=== PATIENT | male | born 1960 | race Caucasian/White ===

== ENCOUNTER 2016-09-02 08:39 | Inpatient (IN) | payer OTHER ==
[2016-09-02] MEDS ORDERED: SODIUM CHLORIDE 0.9% 500 ML IV STA (08:59)
--- NOTE | 2016-09-02 09:07 | ED ---
General Adult HPI - General Chief complaint: Neuro Symptoms/Deficit Stated complaint: Sent by Urgent Care Poss CVA Time Seen by Provider: 09/02/16 08:45 Source: patient, family, RN notes reviewed Mode of arrival: wheelchair Limitations: no limitations - History of Present Illness Initial comments: This is a 56-year-old male who presents emergency Department complaining of left -sided weakness since Friday. Patient states he's had difficult time controlling his left arm and is noticed a little bit of weakness in his left leg. Patient states she's also had some intermittent slurred speech but currently is not having any slurred speech. 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 Patient denies any residual effects from that. 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 Patient denies any chest pain difficulty breathing or shortness of breath per patient denies any fever chills or cough. Patient denies abdominal pain patient denies any nausea or vomiting. Patient denies any recent fever or chills. - Related Data Home Medications Medication Instructions Recorded Confirmed Aspirin 650 mg PO DAILY 09/02/16 09/02/16 Krill Oil 500 mg PO DAILY 09/02/16 09/02/16 Multivitamins, Thera [Multivitamin] 1 tab PO DAILY 09/02/16 09/02/16 Allergies Allergy/AdvReac Type Severity Reaction Status Date / Time cephalexin monohydrate Allergy Severe Rash/Hives Verified 09/02/16 09:24 [From Keflex] Sulfa (Sulfonamide Allergy Severe Rash/Hives Verified 09/02/16 09:24 Antibiotics) Review of Systems ROS Statement: Those systems with pertinent positive or pertinent negative responses have been documented in the HPI. ROS Other: All systems not noted in ROS Statement are negative. 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 Patient is nontoxic and well- hydrated and is in mild distress. ENT: Neck is soft and supple. No significant lymphadenopathy is noted. Oropharynx is clear. Moist mucous membranes. Neck has full range of motion without eliciting any pain. EYES: The sclera were anicteric and conjunctiva were pink and moist. Extraocular movements were intact and pupils were equal round and reactive to light. Eyelids were unremarkable. PULMONARY: Unlabored respirations. Good breath sounds bilaterally. No audible rales rhonchi or wheezing was noted. CARDIOVASCULAR: There is a regular rate and rhythm without any murmurs gallops or rubs. ABDOMEN: Soft and nontender with normal bowel sounds. No palpable organomegaly was noted. There is no palpable pulsatile mass. SKIN: Skin is clear with no lesions or rashes and otherwise unremarkable. NEUROLOGIC: Patient is alert and oriented x3. Cranial nerves II through XII are grossly intact however he does not have lateral movement of the right eye beyond midline and he states that is normal from a surgery he had on his eyes. Patient has weakness of acquisition manager on the right side. Patient cerebellar testing is abnormal in the right hand and the right leg. MUSCULOSKELETAL: Normal extremities with adequate strength and full range of motion. LYMPHATICS: No significant lymphadenopathy is noted PSYCHIATRIC: Normal psychiatric evaluation. Normal interpersonal interactions appears functionally intact in deals appropriately with others. No signs of depression. No signs of anxiety. Limitations: no limitations Course Vital Signs 09/02/16 09/02/16 09/02/16 08:43 09:01 09:15 Temperature 98.3 F 98.2 F 98.3 F Pulse Rate 65 56 L 54 L Respiratory 16 14 14 Rate Blood Pressure 133/78 137/78 140/80 O2 Sat by Pulse 97 100 98 Oximetry 09/02/16 09:55 Temperature 98.0 F Pulse Rate 59 L Respiratory 14 Rate Blood Pressure 119/76 O2 Sat by Pulse 95 Oximetry Medical Decision Making - Medical Decision Making EKG shows sinus bradycardia 55 bpm FL interval 284 Aldo is 100 a QT interval 442 QTC is 422. Patient's EKG shows no ST segment elevation or depression or T- wave abdomen is noted. Chest x-ray shows no acute abnormality. CT of the brain shows no acute abnormality but does show some old surgical changes. - Lab Data Result diagrams: 09/02/16 09:00 09/02/16 09:00 Lab Results 09/02/16 09/02/16 09/02/16 Range/Units 09:00 09:00 09:00 WBC 8.3 (3.8-10.6) k/uL RBC 5.53 (4.30-5.90) m/uL Hgb 16.1 (13.0-17.5) gm/dL Hct 48.0 (39.0-53.0) % MCV 86.9 (80.0-100.0) fL MCH 29.1 (25.0-35.0) pg MCHC 33.5 (31.0-37.0) g/dL RDW 13.2 (11.5-15.5) % Plt Count 222 (150-450) k/uL Neutrophils % 50 % Lymphocytes % 40 % Monocytes % 4 % Eosinophils % 3 % Basophils % 1 % Neutrophils # 4.1 (1.3-7.7) k/uL Lymphocytes # 3.3 (1.0-4.8) k/uL Monocytes # 0.4 (0-1.0) k/uL Eosinophils # 0.3 (0-0.7) k/uL Basophils # 0.1 (0-0.2) k/uL PT (9.0-12.0) sec INR (<1.1) APTT (22.0-30.0) sec Sodium 141 (137-145) mmol/L Potassium 4.2 (3.5-5.1) mmol/L Chloride 100 (98-107) mmol/L Carbon Dioxide 27 (22-30) mmol/L Anion Gap 14 mmol/L BUN 16 (9-20) mg/dL Creatinine 0.87 (0.66-1.25) mg/dL Est GFR (MDRD) Af Amer >60 (>60 ml/min/1.73 sqM) Est GFR (MDRD) Non-Af >60 (>60 ml/min/1.73 sqM) Glucose 199 H (74-99) mg/dL POC Glucose (mg/dL) (75-99) mg/dL POC Glu Food Runner ID Calcium 9.5 (8.4-10.2) mg/dL Total Bilirubin 0.8 (0.2-1.3) mg/dL AST 55 (17-59) U/L ALT 44 (21-72) U/L Alkaline Phosphatase 84 (38-126) U/L Total Creatine Kinase 83 (55-170) U/L CK-MB (CK-2) 0.5 (0.0-2.4) ng/mL CK-MB (CK-2) Rel Index 0.6 Troponin I <0.012 (0.000-0.034) ng/mL Total Protein 8.0 (6.3-8.2) g/dL Albumin 4.1 (3.5-5.0) g/dL 09/02/16 09/02/16 Range/Units 09:00 09:59 WBC (3.8-10.6) k/uL RBC (4.30-5.90) m/uL Hgb (13.0-17.5) gm/dL Hct (39.0-53.0) % MCV (80.0-100.0) fL MCH (25.0-35.0) pg MCHC (31.0-37.0) g/dL RDW (11.5-15.5) % Plt Count (150-450) k/uL Neutrophils % % Lymphocytes % % Monocytes % % Eosinophils % % Basophils % % Neutrophils # (1.3-7.7) k/uL Lymphocytes # (1.0-4.8) k/uL Monocytes # (0-1.0) k/uL Eosinophils # (0-0.7) k/uL Basophils # (0-0.2) k/uL PT 11.7 (9.0-12.0) sec INR 1.2 (<1.1) APTT 23.5 (22.0-30.0) sec Sodium (137-145) mmol/L Potassium (3.5-5.1) mmol/L Chloride (98-107) mmol/L Carbon Dioxide (22-30) mmol/L Anion Gap mmol/L BUN (9-20) mg/dL Creatinine (0.66-1.25) mg/dL Est GFR (MDRD) Af Amer (>60 ml/min/1.73 sqM) Est GFR (MDRD) Non-Af (>60 ml/min/1.73 sqM) Glucose (74-99) mg/dL POC Glucose (mg/dL) 165 H (75-99) mg/dL POC Glu Food Runner ID Branch, Simon Calcium (8.4-10.2) mg/dL Total Bilirubin (0.2-1.3) mg/dL AST (17-59) U/L ALT (21-72) U/L Alkaline Phosphatase (38-126) U/L Total Creatine Kinase (55-170) U/L CK-MB (CK-2) (0.0-2.4) ng/mL CK-MB (CK-2) Rel Index Troponin I (0.000-0.034) ng/mL Total Protein (6.3-8.2) g/dL Albumin (3.5-5.0) g/dL Disposition Clinical Impression: Cerebrovascular accident Disposition: ADMITTED IP TO THIS [facility] Time of Disposition: 10:13
[2016-09-02 09:15] LABS: Basophils # (A) 0.1 k/uL (0-0.2); Basophils % (A) 1 %; CH 29.5; CHCM 34.1; Eosinophils # (A) 0.3 k/uL (0-0.7); Eosinophils % (A) 3 %; HDW 2.68; HGB 16.1 gm/dL (13.0-17.5); Luc # (Auto) 0.16; Luc % (Auto) 2; Lymphocytes # (A) 3.3 k/uL (1.0-4.8); Lymphocytes % (A) 40 %; MCH 29.1 pg (25.0-35.0); MCHC 33.5 g/dL (31.0-37.0); MCV 86.9 fL (80.0-100.0); Mean Platelet Volume 7.5; Monocytes # (A) 0.4 k/uL (0-1.0); Monocytes % (A) 4 %; Neutrophils # (A) 4.1 k/uL (1.3-7.7); Neutrophils % (A) 50 %; RBC 5.53 m/uL (4.30-5.90); RDW 13.2 % (11.5-15.5); WBC 8.3 k/uL (3.8-10.6); WBC (Perox) 8.31
[2016-09-02 09:25] LABS: ALT 44 U/L (21-72); AST 55 U/L (17-59); Alkaline Phosphatase 84 U/L (38-126); Anion Gap 14 mmol/L; Blood Urea Nitrogen 16 mg/dL (9-20); Calcium 9.5 mg/dL (8.4-10.2); Carbon Dioxide 27 mmol/L (22-30); Chloride 100 mmol/L (98-107); Glucose 199 mg/dL (74-99); Non-African American GFR(MDRD) >60 (>60 ml/min/1.73 sqM); Potassium 4.2 mmol/L (3.5-5.1); Sodium 141 mmol/L (137-145); Total Bilirubin 0.8 mg/dL (0.2-1.3)
--- NOTE | 2016-09-02 09:29 | CT ---
EXAMINATION TYPE: CT brain wo con for TPA DATE OF EXAM: 09/02/2016 9:16 AM COMPARISON: NONE HISTORY: Patient complains of left side weakness. CT DLP: 1046 mGycm Automated exposure control for dose reduction was used. FINDINGS: Surgical changes from bilateral frontal craniotomy are identified. There is no acute intrac ranial hemorrhage or midline shift identified. The ventricles and sulci are within normal limits in size. There is encephalomalacia involving the inferior frontal lobes bilaterally. Nonspecific calcifi cations in the triston are noted. Dystrophic calcification from remote trauma versus calcified mass/neop lasm is in differential. The globes are intact and the visualized sinuses are clear. IMPRESSION: No acute intracranial hemorrhage or midline shift is seen. Post traumatic and/or surgical changes ove r frontal lobes with encephalomalacia. Nonspecific calcification at level of triston, calcific mass or n eoplasm is in differential, need to further investigate with contrast-enhanced MRI should be based on clinical correlation and more importantly correlation with old outside CT or MRI studies.
--- NOTE | 2016-09-02 09:42 | XR ---
EXAMINATION TYPE: XR chest 2V DATE OF EXAM: 09/02/2016 9:33 AM COMPARISON: NONE HISTORY: Shortness of breath TECHNIQUE: Frontal and lateral views of the chest are obtained. FINDINGS: Scattered senescent parenchymal changes noted. Hyperinflation compatible with COPD. No evidence for infiltrate. No evidence for atelectasis. Heart size is stable. Mediastinal structures are stable and grossly unremarkable. No evidence for hilar prominence. Degenerative changes dorsal spine. IMPRESSION: 1. No evidence for acute pulmonary disease.
[2016-09-02 09:43] LABS: INR 1.2 (<1.1); Partial Thromboplastin Time 23.5 sec (22.0-30.0); Prothrombin Time 11.7 sec (9.0-12.0)
[2016-09-02 09:52] LABS: Creatine Kinase 83 U/L (55-170)
[2016-09-02 10:01] LABS: Glucose,Whole Blood 165 mg/dL (75-99)
[2016-09-02 10:03] LABS: Creatine Kinase MB 0.5 ng/mL (0.0-2.4); Troponin I <0.012 ng/mL (0.000-0.034)
--- NOTE | 2016-09-02 10:47 | US ---
EXAMINATION TYPE: US carotid duplex BILAT DATE OF EXAM: 09/02/2016 10:38 AM COMPARISON: NONE CLINICAL HISTORY: Stenosis. CVA, scanned portable in ER. EXAM MEASUREMENTS: RIGHT: Peak Systolic Velocity (PSV) cm/sec ----- Right CCA: 52.9 ----- Right ICA: 79.1 ----- Right ECA: 68.4 ICA/CCA ratio: 1.5 RIGHT: End Diastole cm/sec ----- Right CCA: 13.6 ----- Right ICA: 33.6 ----- Right ECA: 8.6 LEFT: Peak Systolic Velocity (PSV) cm/sec ----- Left CCA: 66.9 ----- Left ICA: 65.4 ----- Left ECA: 92.2 ICA/CCA ratio: 1.0 LEFT: End Diastole cm/sec ----- Left CCA: 16.7 ----- Left ICA: 28.4 ----- Left ECA: 11.9 VERTEBRALS (direction of flow): Right Vertebral: Antegrade Left Vertebral: Antegrade IMPRESSION: Bilateral intimal thickening, no elevated velocities, no significant stenosis Criteria for Assigning % of Stenosis / Diameter reduction (Estimation based on the indirect measurements of the internal carotid artery velocities (ICA PSV). 1. Normal (no stenosis)=ICA PSV < 125 cm/s: ratio < 2.0: ICA EDV<40 cm/s. 2. Less than 50% stenosis=ICA PSV < 125 cm/s: ratio < 2.0: ICA EDV<40 cm/s. 3. 50 to 69% stenosis=ICA PSV of 125 to 230 cm/s: ration 2.0 ? 4.0: ICA EDV 40-100 cm/s. 4. Greater than 70% stenosis to near occlusion= ICA PSV > 230 cm/s: ratio > 4.0: ICA EDV > 100 cm/s. 5. Near occlusion= ICA PSV velocities may be low or undetectable: variable ratio and ICA EDV. 6. Total occlusion=unable to detect flow.
--- NOTE | 2016-09-02 12:56 | P.HPIM ---
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 Patient developed slight weakness on the left side of his body started on Friday become slightly bit worse over the weekend and today his left upper extremity become weaker than the normal left lower extremity is less weakness and started having more slurred speech.. With his current problem family ended up bringing him to the emergency department for the above problem. ER course with CT of the brain showed no acute intracranial hemorrhage or midline shift, post surgical post exchange manager the left frontal with encephalomalacia , nonspecific calcification at the level of the triston. With the current problem patient was diagnosed with a stroke he'll be admitted to the hospital be seen urology, might require to go for an MRI of the brain and the rest of the testing including echo carotid and full workup with lab and coagulopathy. Review of Systems Constitutional: Reports fatigue, Reports lethargy, Reports malaise, Reports weight gain, Denies as per HPI, Denies anorexia, Denies chills, Denies chronic headaches, Denies chronic pain, Denies daytime sleepiness, Denies fever, Denies night sweats, Denies poor appetite, Denies sweats, Denies weakness, Denies weight loss Eyes: bilateral as per HPI Ears: deny: decreased hearing Ears, nose, mouth and throat: Reports nasal congestion, Reports odynophagia, Reports sinus pressure, Reports swelling in mouth, Denies as per HPI, Denies ant. neck pain, Denies bleeding gums, Denies dental pain, Denies dysphagia, Denies epistaxis, Denies headache, Denies hoarseness, Denies mouth pain, Denies nasal discharge, Denies neck fullness/pressure, Denies neck lump, Denies nose pain, Denies post-nasal drip, Denies sinus pain, Denies swelling in throat, Denies sore throat, Denies vertigo, Denies voice changes Cardiovascular: Reports chest pain, Reports lightheadedness, Reports orthopnea, Reports palpitations, Denies as per HPI, Denies claudication, Denies decreased exercise tolerance, Denies dyspnea on exertion, Denies edema, Denies high blood pressure, Denies irregular heart beat, Denies leg edema, Denies paroxysmal nocturnal dyspnea, Denies phlebitis, Denies rapid heart beat, Denies shortness of breath, Denies syncope Respiratory: Reports cough, Reports dyspnea, Denies as per HPI, Denies congestion, Denies cough with sputum, Denies excessive sputum, Denies hemoptysis , Denies home oxygen, Denies pain, Denies pain on inspiration, Denies pleurisy, Denies respiratory infections, Denies sleep apnea, Denies snoring, Denies wheezing Gastrointestinal: Reports dyspepsia, Reports indigestion, Reports loss of appetite, Reports nausea, Denies as per HPI, Denies abdominal pain, Denies belching, Denies bloating, Denies BRBPR, Denies change in bowel habits, Denies coffee ground emesis, Denies constipation, Denies diarrhea, Denies early satiety , Denies excessive gas, Denies heartburn, Denies hematemesis, Denies hematochezia, Denies jaundice, Denies lactose intolerance, Denies melena, Denies vomiting Genitourinary: Reports nocturia, Reports polyuria, Reports urinary frequency, Denies as per HPI, Denies decreased libido, Denies difficulties fathering child , Denies discharge, Denies dysuria, Denies erectile dysfunction, Denies flank pain, Denies genital pain, Denies genital sores, Denies hematuria, Denies impotence, Denies incontinence, Denies kidney stones, Denies testicular lump, Denies testicular pain, Denies urinary hesitancy, Denies urinary retention Musculoskeletal: Reports loss of height, Reports low back pain, Reports myalgias , Reports neck pain, Denies as per HPI, Denies arm numbness/tingling, Denies atrophy, Denies fractures, Denies frequent falls, Denies gait dysfunction, Denies hot joints, Denies leg numbness/tingling, Denies limitation of motion, Denies morning stiffness, Denies muscle cramps, Denies muscle weakness, Denies neck stiffness, Denies prior amputations, Denies redness of joints, Denies shooting arm pain, Denies shooting leg pain Musculoskeletal: bilateral: ankle pain Integumentary: Reports dryness, Reports pruritus, Reports rash, Denies as per HPI, Denies acne, Denies boils, Denies brittle nails, Denies change in hair/ nails, Denies color changes, Denies darkening of skin, Denies depigmentation, Denies foot/leg ulcers, Denies growths, Denies hirsutism, Denies lesions, Denies onychomycosis, Denies sores, Denies striae, Denies unusual bruising, Denies wounds Neurological: Reports ataxia, Reports burning pain, Reports change in mentation , Reports gait dysfunction, Reports lack of coordination, Reports numbness, Reports paresthesias, Reports syncope, Reports tingling, Reports tremors, Reports vertigo, Reports weakness, Denies as per HPI, Denies aphasia, Denies balance difficulties, Denies change in smell/taste, Denies change in speech, Denies confusion, Denies convulsions, Denies double vision, Denies head injury, Denies headaches, Denies hearing difficulties, Denies loss of vision, Denies memory loss, Denies migraines, Denies motor disturbance, Denies paralysis, Denies seizures, Denies sensory deficit, Denies spasticity, Denies tic, Denies transient paralysis, Denies visual changes Psychiatric: Reports anhedonia, Reports depression, Reports memory loss, Reports sadness/tearfulness, Denies as per HPI, Denies anxiety, Denies anxiety attacks, Denies change in appetite, Denies change in libido, Denies change in sleep habits, Denies confusion, Denies difficulty concentrating, Denies disorientation, Denies hallucinations, Denies hopelessness, Denies hypersomnia, Denies insomnia, Denies irritability, Denies mood swings, Denies paranoia, Denies sleep disturbances, Denies suicidal ideation Endocrine: Reports fatigue, Reports flushing, Reports polydipsia, Reports polyuria, Denies as per HPI, Denies cold intolerance, Denies deepening of the voice, Denies excessive sweating, Denies excessive thirst, Denies heat intolerance, Denies high blood sugars, Denies increase in ring/shoe/hat size, Denies low blood sugars, Denies nocturia, Denies palpitations, Denies polyphagia , Denies proptosis, Denies recent glucocorticoid use, Denies thyroid mass, Denies weight change Hematologic/Lymphatic: Reports easy bleeding, Denies as per HPI, Denies easy bruising, Denies lymphadenopathy, Denies lymphedema, Denies thrombophilia Allergic/Immunologic: Reports allergic rhinitis, Denies as per HPI, Denies anaphylaxis, Denies angioedema, Denies gluten intolerance, Denies persistent infections, Denies seasonal allergies, Denies urticaria, Denies wheezing Past Medical History Past Medical History: No Reported History Additional Past Medical History / Comment(s): 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 History of Any Multi-Drug Resistant Organisms: None Reported Additional Past Surgical History / Comment(s): CRANIOTOMY TIMES 2, sinus surgery for tumor removal, colonoscopies, bilateral eye surgery-radiation caused scarring and muscles had to be stretched. Past Anesthesia/Blood Transfusion Reactions: No Reported Reaction Past Psychological History: No Psychological Hx Reported Additional Psychological History / Comment(s): Pt resides with family. He is independent. Smoking Status: Never smoker Past Alcohol Use History: None Reported Past Drug Use History: None Reported - Past Family History Mother Family Medical History: Eye Disorder Additional Family Medical History / Comment(s): Glaucoma. Mother is 81 yrs old. Father Family Medical History: Myocardial Infarction (DC) Additional Family Medical History / Comment(s): Father had heart disease and of a DC at the age of 82yrs. Medications and Allergies Home Medications Medication Instructions Recorded Confirmed Type Aspirin 650 mg PO DAILY 09/02/16 09/02/16 History Krill Oil 500 mg PO DAILY 09/02/16 09/02/16 History Multivitamins, Thera [Multivitamin] 1 tab PO DAILY 09/02/16 09/02/16 History Allergies Allergy/AdvReac Type Severity Reaction Status Date / Time cephalexin monohydrate Allergy Severe Rash/Hives Verified 09/02/16 09:24 [From Keflex] Sulfa (Sulfonamide Allergy Severe Rash/Hives Verified 09/02/16 09:24 Antibiotics) Physical Exam Vitals: Vital Signs Temp Pulse Resp BP BP Pulse Ox 09/02/16 11:25 97.9 F 51 L 15 124/73 98 09/02/16 11:00 97.9 F 14 126/74 100 09/02/16 10:44 55 L 15 127/77 100 - Constitutional General appearance: no average body habitus, cooperative, no disheveled, no mild distress, no morbidly obese, no no acute distress, obese, no severe distress, no thin - EENT Eyes: abnormal pupil, no anicteric sclerae, no disc margins sharp, no edentulous , no EOMI, no PERRLA, no fundus normal, no photophobia, no dentition normal, no poor dentition, no ptosis, no scleral icterus, normal appearance ENT: hard of hearing, no hearing grossly normal, no NA/AT, no normal oropharynx , no other, pharyngeal erythema, no thrush, no tonsillar exudates, no tonsillar swelling Ears: bilateral: normal - Neck Neck: no lymphadenopathy, normal ROM, no other, no rigidity, no stridor, no thyromegaly Carotids: bilateral: upstroke normal, upstroke delayed Thyroid: bilateral: normal size - Respiratory Respiratory: bilateral: CTA, diminished - Cardiovascular Rhythm: regular Heart sounds: normal: S1, S2 Abnormal Heart Sounds: systolic murmur, S3 Gallop - Gastrointestinal General gastrointestinal: no absent bowel sounds, no decreased bowel sounds, distended, no hepatomegaly, no hyperactive bowel sounds, normal bowel sounds, no organomegaly, no rigid, no scaphoid, soft, no splenomegaly, no tenderness, no umbilical hernia, no ventral hernia - Integumentary Integumentary: no calor, no cellulitis, no cyanotic, no decreased turgor, no flushed, no jaundiced, no normal, no normal turgor, pale, rash, no ulcer - Neurologic Neurologic: CNII-XII intact - Musculoskeletal Musculoskeletal: gait normal, no generalized weakness, no strength equal bilaterally, no right sided weakness, left sided weakness - Psychiatric Psychiatric: no A&O x's 3, appropriate affect, no intact judgment & insight Results CBC & Chem 7: 09/02/16 09:00 09/02/16 09:00 Thrombosis Risk Factor Assmnt - DVT/VTE Prophylaxis DVT/VTE Prophylaxis: Mechanical Prophylaxis ordered - Choose All That Apply Any of the Below Risk Factors Present?: Yes Each Factor Represents 1 point: Age 41-60 years, Obesity (BMI >25) Other Risk Factors: Yes Each Risk Factor Represents 5 Points: Stroke (< 1 month) Thrombosis Risk Factor Assessment Total Risk Factor Score: 7 Thrombosis Risk Factor Assessment Level: High Risk Assessment and Plan Plan: 1 stroke: With patient's current symptoms patient be seen neurology, further testing including echo, carotid ultrasound and MRI of the brain will be done. 2 history of brain tumor post craniotomy 3 last one was 20 years ago, the current finding mice to be consistent with residual from old brain tumor, neuro to see patient and MRI is pending at this point. 3 hyperglycemia: Patient will be on Accu-Chek with sliding scales coverage not on any medication currently. 4 BPH: Watch for any urinary retention. 5 GERD: Patient be on Pepcid 20 mg daily. 6 DVT prophylaxis: Patient will be on heparin subcutaneous and knee-high MIGUEL hose. CODE STATUS: Full code. Expectation from this admission: Patient be in the hospital for 1-2 nights.
[2016-09-02] MEDS: HEPARIN SODIUM,PORCINE 5,000 UNIT/ML 1 ML VIAL SQ SCH ×2 (16:48→23:04)
--- NOTE | 2016-09-02 16:58 | P.CNNES ---
History of Present Illness Consult date: 09/02/16 Reason for Consult: Patient admitted with left sided weakness and possible stroke. History of Present Illness: This patient is a 56-year-old right-handed white male who states on Friday he was at home and was doing some hard labor moving furniture around when he developed sudden left-sided weakness involving his left arm. Patient thought he may have pinched nerve and that was the cause of his hand weakness. The weakness persisted over the weekend. Today he continued to notice left arm weakness and decided to come to the hospital for further evaluation. Patient mentions that he has a history of having brain tumor surgery and resection 30 years ago at the [facility]. He was found to have evidence of highly invasive meningioma. He underwent 3 surgical craniotomies for removal of the tumor. He has not had any recent difficulty with recurrence of the meningioma. He also underwent a course of radiation therapy following his last brain tumor resection. He has been doing well up until recently when he developed left arm weakness. He also was noted by his brother is having slight slurring of his speech. Patient has been taking aspirin but not on a regular basis at home. The patient was evaluated in the emergency room by Dr. Peñaloza. He was sent for a computed tomography scan of the brain which revealed no acute intracranial hemorrhage. There was postsurgical changes noted over the frontal lobes bilaterally with some degree of encephalomalacia. There was also nonspecific calcification noted in the triston and MRI of the brain was recommended for further evaluation. The patient states he has not had any recent MRI of the brain other than about 2 years ago. He is undergone reconstructive surgery for his eye movements and apparently had to have the MRI done about 2 years ago at which time there was clearance in terms of no recurrent meningioma in the frontal orbital areas of the skull. The patient has been doing fairly well up until this recent acute left arm weakness. He has now been admitted and neurology has been consulted for further evaluation and recommendations. Review of Systems Constitutional: Denies chills, Denies fever Eyes: denies blurred vision, denies pain Ears, nose, mouth and throat: Denies headache, Denies sore throat Cardiovascular: Denies chest pain, Denies shortness of breath Respiratory: Denies cough Gastrointestinal: Denies abdominal pain, Denies diarrhea, Denies nausea, Denies vomiting Musculoskeletal: Denies myalgias Integumentary: Denies pruritus, Denies rash Neurological: Reports ataxia, Reports lack of coordination, Denies numbness, Denies weakness Psychiatric: Denies anxiety, Denies depression Endocrine: Denies fatigue, Denies weight change Past Medical History Past Medical History: No Reported History Additional Past Medical History / Comment(s): 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 History of Any Multi-Drug Resistant Organisms: None Reported Additional Past Surgical History / Comment(s): CRANIOTOMY TIMES 2, sinus surgery for tumor removal, colonoscopies, bilateral eye surgery-radiation caused scarring and muscles had to be stretched. Past Anesthesia/Blood Transfusion Reactions: No Reported Reaction Past Psychological History: No Psychological Hx Reported Additional Psychological History / Comment(s): Pt resides with family. He is independent. Smoking Status: Never smoker Past Alcohol Use History: None Reported Past Drug Use History: None Reported - Past Family History Mother Family Medical History: Eye Disorder Additional Family Medical History / Comment(s): Glaucoma. Mother is 81 yrs old. Father Family Medical History: Myocardial Infarction ([place]) Additional Family Medical History / Comment(s): Father had heart disease and of a [place] at the age of 82yrs. Medications and Allergies Home Medications Medication Instructions Recorded Confirmed Type Aspirin 650 mg PO DAILY 09/02/16 09/02/16 History Krill Oil 500 mg PO DAILY 09/02/16 09/02/16 History Multivitamins, Thera [Multivitamin] 1 tab PO DAILY 09/02/16 09/02/16 History Allergies Allergy/AdvReac Type Severity Reaction Status Date / Time cephalexin monohydrate Allergy Severe Rash/Hives Verified 09/02/16 09:24 [From Keflex] Sulfa (Sulfonamide Allergy Severe Rash/Hives Verified 09/02/16 09:24 Antibiotics) Physical Examination - Vital Signs Vital Signs: Vital Signs Temp Pulse Pulse Resp BP BP Pulse Ox 09/02/16 13:14 67 16 135/71 98 09/02/16 12:14 97.2 F L 47 L 16 124/65 99 09/02/16 11:25 97.9 F 51 L 15 124/73 98 09/02/16 11:00 97.9 F 14 126/74 100 09/02/16 10:44 55 L 15 127/77 100 - Constitutional General appearance: average body habitus, cooperative - EENT EENT: PERRL, mucous membranes moist - Respiratory Respiratory: lungs clear, normal breath sounds - Cardiovascular Cardiovascular: regular rate, normal S1, normal S2 Extremities: no peripheral edema bilaterally - Gastrointestinal Gastrointestinal: normoactive bowel sounds - Integumentary Integumentary: normal - Neurologic Cranial nerve examination: PERRL, VFF, V1/V2/V3 grossly intact, face symmetric, intact gag reflex, intact corneal reflex, normal palatal elevation Speech examination: intact Sensorimotor examination: intact Motor examination - right side: 5/5: biceps, triceps, wrist flexion, wrist extension, front end alignment specialist, hip flexors, knee extensors, dorsiflexion, toe extension (EHL) , plantarflexion Motor examination - left side: 3/5: biceps, triceps, front end alignment specialist, 4/5: wrist flexion, wrist extension, hip flexors, knee extensors, dorsiflexion, toe extension (EHL) , plantarflexion Detailed sensory examination: intact Reflex and gait examination: intact Reflexes: 1+: ankle, bicep, knee, tricep - Musculoskeletal Musculoskeletal: no pain - Psychiatric Psychiatric: mood/affect appropriate, cooperative Results - Laboratory Findings CBC and BMP: 09/02/16 09:00 09/02/16 09:00 Assessment and Plan (1) Acute right arterial ischemic stroke, MCA (middle cerebral artery) Status: Acute Code(s): I63.511 - CEREB INFRC D/T UNSP OCCLS OR STENOS OF RIGHT MID CEREB ART (2) History of resection of meningioma Status: Acute Code(s): Z98.890 - OTHER SPECIFIED POSTPROCEDURAL STATES (3) Extraocular muscle weakness of right eye Status: Acute Code(s): H05.821 - MYOPATHY OF EXTRAOCULAR MUSCLES, RIGHT ORBIT Plan: This patient is a 56-year-old male admitted with acute onset of left-sided weakness which began on Friday of this past week. Patient thought he may have pinscher nerve and did not seek medical attention last week. Patient was brought in today is his left arm weakness did not show any improvement. He has a history of having had 3 craniotomies for meningioma resection at the [facility] over 30 years ago. He had recent MRI about 2 years ago for ocular clearance for eye surgery which failed to reveal any recurrence of meningioma at that time. Patient's neurological exam findings at this time suggest left-sided weakness suggesting acute right hemispheric stroke. We have recommended a complete stroke evaluation for the patient. Patient should continue on aspirin daily for secondary stroke prevention. Further recommendations will be given depending on his MRI results. He underwent carotid Doppler ultrasound today which is reviewed and is negative for any carotid artery stenosis. We would recommend a complete stroke evaluation for further assessment. We will continue to follow his neurological progress closely during this admission. Case was discussed at length with the patient today in detail. He is in full understanding of our current recommendations. As noted this overall prognosis remains guarded. Time with Patient: Greater than 30
[2016-09-03] MEDS: INSULIN LISPRO (humaLOG) 300 UNIT/3 ML VIAL SQ SCH ×4 (06:30→21:03)
[2016-09-03 06:34] LABS: Glucose,Whole Blood 198 mg/dL (75-99)
[2016-09-03 06:45] LABS: Cholesterol 247 mg/dL (<200); HDL Cholesterol 45 mg/dL (40-60); Triglycerides 166 mg/dL (<150)
[2016-09-03] MEDS: HEPARIN SODIUM,PORCINE 5,000 UNIT/ML 1 ML VIAL SQ SCH ×2 (08:04→15:45)
[2016-09-03] MEDS: FAMOTIDINE 20 MG TAB PO SCH (08:05)
[2016-09-03] MEDS: MULTIVITAMINS, THERA 1 EACH TAB PO SCH (08:05)
[2016-09-03] MEDS: ASPIRIN 325 MG TAB PO SCH (08:05)
[2016-09-03 09:11] LABS: Hemoglobin A1C 9.3 % (4.2-6.1)
--- NOTE | 2016-09-03 10:31 | ECHOF ---
Referral Reason:LVF MEASUREMENTS -------- HEIGHT: 177.8 cm WEIGHT: 104.3 kg BP: 124/65 RVIDd: 3.2 cm (< 3.3) IVSd: 1.2 cm (0.6 - 1.1) LVIDd: 4.5 cm (3.9 - 5.3) LVPWd: 1.1 cm (0.6 - 1.1) IVSs: 2.2 cm LVIDs: 2.0 cm LVPWs: 2.2 cm LA Diam: 3.9 cm (2.7 - 3.8) LAESV Index (A-L): 18.54 ml/m Ao Diam: 3.2 cm (2.0 - 3.7) AV Cusp: 1.7 cm (1.5 - 2.6) LA Diam: 3.7 cm (2.7 - 3.8) MV EXCURSION: 12.538 mm (> 18.000) MV EF SLOPE: 39 mm/s (70 - 150) EPSS: 0.5 cm MV E Ricky: 0.73 m/s MV DecT: 265 ms MV A Ricky: 0.76 m/s MV E/A Ratio: 0.96 FINDINGS -------- Sinus rhythm. This was a technically adequate study. There is borderline concentric left ventricular hypertrophy. Overall left ventricular systolic function is normal with, an EF between 55 - 60 %. The right ventricle is normal in size. Normal LA size by volume 22+/-6 ml/m2. The right atrium is normal in size. Aortic valve is trileaflet and is mildly thickened. Mild mitral annular calcification present. Trace tricuspid regurgitation present. Pulmonic valve appears structurally normal. The aortic root size is normal. Normal inferior vena cava with normal inspiratory collapse consistent with estimated right atrial pressure of 5 mmHg. Echo free space may represent effusion or a pericardial fat pad. CONCLUSIONS -------- 1. Sinus rhythm. 2. Trace tricuspid regurgitation present. 3. Pulmonic valve appears structurally normal. 4. The aortic root size is normal. 5. Normal inferior vena cava with normal inspiratory collapse consistent with estimated right atrial pressure of 5 mmHg. 6. Echo free space may represent effusion or a pericardial fat pad. 7. This was a technically adequate study. 8. There is borderline concentric left ventricular hypertrophy. 9. Overall left ventricular systolic function is normal with, an EF between 55 - 60 %. 10. The right ventricle is normal in size. 11. Normal LA size by volume 22+/-6 ml/m2. 12. The right atrium is normal in size. 13. Aortic valve is trileaflet and is mildly thickened. 14. Mild mitral annular calcification present. TISSUE PACKER: Krzysztof Orozco RDCS
[2016-09-03 12:13] LABS: Glucose,Whole Blood 163 mg/dL (75-99)
--- NOTE | 2016-09-03 12:25 | MR ---
EXAMINATION TYPE: MR brain wo/w con DATE OF EXAM: 09/03/2016 12:00 PM COMPARISON: CT brain from yesterday. HISTORY: History of meningioma resection presents with acute onset left-sided weakness on admission y esterday. TECHNIQUE: Multiplanar, multisequence images of the brain and brainstem is performed without and with IV contras t, utilizing 19 mL intravenous MultiHance . FINDINGS: Diffusion weighted images demonstrate area of increased signal on diffusion weighted images with diminished signal on ADC mapping involving the ventral aspect of the mid to lower right triston me asuring approximately 9 mm in anterior posterior dimension by 4 mm transversely that shows T1 hypoint ensity and T2 hyperintensity with vague heterogeneous postcontrast peripheral enhancement. There is s ome surrounding T2 hypointensity corresponding to area of enhancement. Areas of abnormality on T1 and T2-weighted images are felt slightly more prominent than area of of increased signal on diffusion we ighted imaging. There is no extra-axial fluid collection or significant white matter signal abnormality. The ventric ular system and cisternal spaces are normal in size and appearance. The brain volume is age appropri ate. There is artifact from bilateral frontal surgical change or craniotomy redemonstrated. There is encephalomalacia involving the frontal lobes bilaterally most pronounced inferiorly redemonstrated. The craniocervical junction appears within normal limits. Post contrast images demonstrate no abnorm al enhancement. The dural venous sinuses appear patent. The visualized sinuses are clear and the glob es are intact. IMPRESSION: 1. Area of acute ischemia in the triston slight ventral aspect and slight right of midline is felt prese nt as detailed above. 2. Presence of calcification on CT with area more prominent on CT and other MRI sequences versus diff usion raises concern for underlying vascular malformation such as cavernous hemangioma or cryptogenic AVM, a low-grade neoplasm is in differential. Not significant surrounding edema is noted. Once again correlation with old outside CT or MRI exams could be beneficial to further evaluate. In addition on e may consider MR spectroscopy to further evaluate this level. 3. Postsurgical changes from bilateral frontal craniotomy with encephalomalacia involving bilateral i nferior frontal lobes redemonstrated.
--- NOTE | 2016-09-03 14:19 | P.PN ---
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 Thacker patient with past medical history of brain tumor involving sinus had craniotomy 2 last time was over 30 years ago and ended up having radiation therapy to reduce the size of the tumor at the time. Patient developed slight weakness on the left side of his body started on Friday become slightly bit worse over the weekend and today his left upper extremity become weaker than the normal left lower extremity is less weakness and started having more slurred speech.. With his current problem family ended up bringing him to the emergency department for the above problem. 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 With the current problem patient was diagnosed with a stroke he'll be admitted to the hospital be seen urology, might require to go for an MRI of the brain and the rest of the testing including echo carotid and full workup with lab and coagulopathy. 09/03: Carotid duplex did not show any hemodynamically significant stenosis. Patient has been seen by neurology. Echocardiogram reveals EF of 55-60% with trace tricuspid regurgitation echo-free space may represent effusion or pericardial fat pad, borderline concentric left ventricular hypertrophy. MRI of the brain reveals area of acute ischemia in the triston slight ventral aspect and slight right of midline. Presence of calcification on CAT scan with very more prominent on CAT scan and other MRI sequence versus diffusion raises concern for underlying vascular malformation such as cavernous hemangioma or cryptogenic AVM or low-grade neoplasm. No significant surrounding edema is noted. Postsurgical changes from bilateral frontal craniotomy with encephalomalacia involving bilateral inferior frontal lobes redemonstrated. EEG are pending. Patient denies any new concerns. He will be transferred to [facility] today. Patient's blood sugars have been elevated for which she has been started on Januvia and Humalog scale. Objective - Vital Signs Vital signs: Vital Signs Temp 97.6 F 09/03/16 07:39 Pulse 58 L 09/03/16 08:31 Resp 18 09/03/16 08:31 BP 122/75 09/03/16 07:39 Pulse Ox 98 09/03/16 07:39 Intake & Output 09/02/16 09/03/16 09/03/16 18:59 06:59 18:59 Intake Total 120 Output Total 350 Balance -230 Weight 96.8 kg Intake: Oral 120 Output: Urine 350 Other: Voiding Method Toilet Toilet # Voids 1 1 - Exam General appearance: no average body habitus, cooperative, no disheveled, no mild distress, no morbidly obese, no no acute distress, obese, no severe distress, no thin - EENT Eyes: abnormal pupil, no anicteric sclerae, no disc margins sharp, no edentulous , no EOMI, no PERRLA, no fundus normal, no photophobia, no dentition normal, no poor dentition, no ptosis, no scleral icterus, normal appearance ENT: hard of hearing, no hearing grossly normal, no NA/AT, no normal oropharynx , no other, pharyngeal erythema, no thrush, no tonsillar exudates, no tonsillar swelling Ears: bilateral: normal - Neck Neck: no lymphadenopathy, normal ROM, no other, no rigidity, no stridor, no thyromegaly Carotids: bilateral: upstroke normal, upstroke delayed Thyroid: bilateral: normal size - Respiratory Respiratory: bilateral: CTA, diminished - Cardiovascular Rhythm: regular Heart sounds: normal: S1, S2 Abnormal Heart Sounds: systolic murmur, S3 Gallop - Gastrointestinal General gastrointestinal: no absent bowel sounds, no decreased bowel sounds, distended, no hepatomegaly, no hyperactive bowel sounds, normal bowel sounds, no organomegaly, no rigid, no scaphoid, soft, no splenomegaly, no tenderness, no umbilical hernia, no ventral hernia - Integumentary Integumentary: no calor, no cellulitis, no cyanotic, no decreased turgor, no flushed, no jaundiced, no normal, no normal turgor, pale, rash, no ulcer - Neurologic Neurologic: CNII-XII intact - Musculoskeletal Musculoskeletal: gait normal, no generalized weakness, no strength equal bilaterally, no right sided weakness, left sided weakness - Psychiatric Psychiatric: no A&O x's 3, appropriate affect, no intact judgment & insight - Labs CBC & Chem 7: 09/02/16 09:00 09/02/16 09:00 Labs: Abnormal Lab Results - Last 24 Hours (Table) 09/03/16 09/03/16 Range/Units 06:08 06:24 POC Glucose (mg/dL) 198 H (75-99) mg/dL Triglycerides 166 H (<150) mg/dL Cholesterol 247 H (<200) mg/dL LDL Cholesterol, Calc 169 H (0-99) mg/dL Assessment and Plan Plan: 1 stroke: With patient's current symptoms patient be seen neurology, further testing including echo, carotid ultrasound and MRI of the brain will be done. 2 history of brain tumor post craniotomy 3 last one was 20 years ago, the current finding mice to be consistent with residual from old brain tumor, neuro to see patient and MRI is pending at this point. 3 hyperglycemia: Patient will be on Accu-Chek with sliding scales coverage not on any medication currently. 4 BPH: Watch for any urinary retention. 5 GERD: Patient be on Pepcid 20 mg daily. 6 DVT prophylaxis: Patient will be on heparin subcutaneous and knee-high MIGUEL hose. 7. Diabetes mellitus type 2, new diagnosis.. Patient started on Januvia/ Tradjenta and Humalog scale. CODE STATUS: Full code. Discharge plan: Return home and in the next 24-48 hours. Impression and plan of care have been directed as dictated by the signing physician. Yoko Loco nurse practitioner acting as scribe for signing physician. Time with Patient: Greater than 30
[2016-09-03] MEDS: LINAGLIPTIN 5 MG TABLET PO SCH (15:46)
[2016-09-03 17:11] LABS: Glucose,Whole Blood 271 mg/dL (75-99)
--- NOTE | 2016-09-03 18:28 | P.PN ---
Subjective This patient is a 56-year-old male who was seen in neurology consultation yesterday for evaluation of left-sided weakness. Patient developed sudden weakness of his left arm which he initially to be due to possible pinched nerve. He was subsequent admitted to the hospital yesterday and underwent an MRI of the brain today. MRI of the brain reveals evidence of an acute right pontine infarct. There is also some calcification seen in the area of the brainstem. This raises question of vascular malformation versus low-grade neoplasm. This will need further evaluation by neurosurgery in the outpatient setting. The patient underwent carotid Doppler ultrasound which came back negative for any evidence of carotid stenosis. MRI did reveal evidence of old craniotomy areas involving the bifrontal area of the brain for which she underwent brain surgery over 30 years ago for meningioma resection. No evidence of any enhancing lesions were noted on this MRI of the brain done today. Patient continues to do fairly well today. He is noted to have elevated blood sugars. He has been started on Januvia and Humalog to scale. We reviewed all of the results of the MRI today with the patient in detail. Patient may be evaluated for possible inpatient rehab placement as well. If the patient is not a candidate for inpatient rehab and would recommend home PT evaluation and treatment for him. He should continue on 1 aspirin daily for secondary stroke prevention. We will continue close neurological follow-up for the patient. Once again we would recommend the patient to have follow-up in the neurosurgery clinic regarding his MRI results today. This can be done in the outpatient setting with neurosurgery. Case was discussed at length with the patient and his mother at bedside. All of their questions were answered today detail. We will continue close neurological follow-up for the patient during this admission. Objective - Vital Signs Vital signs: Vital Signs Temp 97.8 F 09/03/16 15:46 Pulse 64 09/03/16 15:46 Resp 18 09/03/16 15:46 BP 117/72 09/03/16 15:46 Pulse Ox 94 L 09/03/16 15:46 Intake & Output 09/02/16 09/03/16 09/03/16 18:59 06:59 18:59 Intake Total 720 Output Total 350 Balance 370 Weight 96.8 kg Intake: Oral 720 Output: Urine 350 Other: Voiding Method Toilet Toilet # Voids 1 1 - Exam Physical examination: PHYSICAL EXAMINATION: Patient is resting comfortably in bed. VITAL SIGNS: Blood pressure is [117/72]. Heart rate is [64]. Respiration is [18] . Temperature is [97.8]. HEENT: Head is atraumatic, neck is supple, there were no carotid bruits. CHEST: Lungs are clear to auscultation and percussion. CARDIAC: S1, S2 normal rate and rhythm. There is no murmur. ABDOMEN: Soft and nontender. Bowel sounds are present. EXTREMITIES: There is no pedal edema. Peripheral pulses are present. Neurological examination: Patient's neurological examination is unchanged from yesterday. - Labs CBC & Chem 7: 09/02/16 09:00 09/02/16 09:00 Labs: Abnormal Lab Results - Last 24 Hours (Table) 09/03/16 09/03/16 09/03/16 Range/Units 06:08 06:08 06:24 POC Glucose (mg/dL) 198 H (75-99) mg/dL Hemoglobin A1c 9.3 H (4.2-6.1) % Triglycerides 166 H (<150) mg/dL Cholesterol 247 H (<200) mg/dL LDL Cholesterol, Calc 169 H (0-99) mg/dL 09/03/16 Range/Units 12:09 POC Glucose (mg/dL) 163 H (75-99) mg/dL Hemoglobin A1c (4.2-6.1) % Triglycerides (<150) mg/dL Cholesterol (<200) mg/dL LDL Cholesterol, Calc (0-99) mg/dL Assessment and Plan (1) Acute right arterial ischemic stroke, MCA (middle cerebral artery) Status: Acute Code(s): I63.511 - CEREB INFRC D/T UNSP OCCLS OR STENOS OF RIGHT MID CEREB ART (2) History of resection of meningioma Status: Acute Code(s): Z98.890 - OTHER SPECIFIED POSTPROCEDURAL STATES (3) Extraocular muscle weakness of right eye Status: Acute Code(s): H05.821 - MYOPATHY OF EXTRAOCULAR MUSCLES, RIGHT ORBIT Plan: This patient is a 56-year-old male who was admitted to hospital with acute left- sided weakness that started last Friday at home. The patient thinking this was a pinched nerve did not seek medical attention at that time. He was admitted yesterday for further evaluation. He underwent MRI of the brain today which does reveal evidence of a positive brainstem stroke. The area of infarction involves the right triston. This would explain his acute left-sided weakness. He should continue with physical therapy and possibly even be considered for inpatient rehab if a good candidate. We would recommend he continue on one full aspirin 325 mg daily for secondary stroke prevention. MRI of the brain failed to reveal any evidence of recurrent meningioma. There was a differential diagnosis for the brainstem area of calcification which will require neurosurgical evaluation in the outpatient clinic. We did discuss this findings in detail with the patient and his mother at bedside. They can arrange for further evaluation of his MRI films with neurosurgery to see if there is any further recommendations. At this point would continue our current stroke evaluation and treatment. We will continue to follow his progress closely during this admission.
[2016-09-03 20:49] LABS: Glucose,Whole Blood 168 mg/dL (75-99)
[2016-09-04] MEDS: HEPARIN SODIUM,PORCINE 5,000 UNIT/ML 1 ML VIAL SQ SCH ×2 (00:40→07:51)
[2016-09-04 07:09] LABS: Glucose,Whole Blood 180 mg/dL (75-99)
[2016-09-04 07:38] VITALS: RESP 18
[2016-09-04] MEDS: INSULIN LISPRO (humaLOG) 300 UNIT/3 ML VIAL SQ SCH ×2 (07:50→12:27)
[2016-09-04] MEDS: ASPIRIN 325 MG TAB PO SCH (07:51)
[2016-09-04] MEDS: FAMOTIDINE 20 MG TAB PO SCH (07:51)
[2016-09-04] MEDS: LINAGLIPTIN 5 MG TABLET PO SCH (07:51)
[2016-09-04] MEDS: MULTIVITAMINS, THERA 1 EACH TAB PO SCH (07:52)
--- NOTE | 2016-09-04 08:34 | EEG ---
DATE OF SERVICE: INDICATIONS FOR EXAMINATION: This patient is a 56 -year-old male being evaluated for brain stem stroke. The patient presents with left sided weakness. AGE: 56Y EEG FINDINGS: A routine 21 channel awake digital EEG recording was accomplished utilizing the 10-20 international system with bipolar and referential montages. The background activity in the most alert resting state consists of a low to medium amplitude, fairly well developed and well sustained 7-8 Hz activity over the posterior head regions. This posterior rhythm attenuates to eye opening. There is a small amount of low amplitude 18-20 Hz beta activity seen maximally over the anterior head regions. Muscle and movement artifacts were observed on a few occasions during the tracing. Hyperventilation was not performed. Photic stimulation at flash frequencies of 2-30 Hz produced a good symmetrical occipital driving response. No epileptiform discharges were seen. IMPRESSION: This EEG is within normal limits for the patient's age. The EEG failed to reveal any focal, lateralized or epileptiform abnormalities. Clinical correlation is recommended.
[2016-09-04 11:26] LABS: Glucose,Whole Blood 203 mg/dL (75-99)
--- NOTE | 2016-09-04 13:58 | P.DS ---
Providers Date of admission: 09/02/16 10:14 Expected date of discharge: 09/04/16 Attending physician: Andrea Dobbs Primary care physician: Herb Negron [facility] Course: 56-year-old male one of Dr. 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 Patient developed slight weakness on the left side of his body started on Friday become slightly bit worse over the weekend and today his left upper extremity become weaker than the normal left lower extremity is less weakness and started having more slurred speech.. With his current problem family ended up bringing him to the emergency department for the above problem. ER course with CT of the brain showed no acute intracranial hemorrhage or midline shift, post surgical guide changer the left frontal with encephalomalacia , nonspecific calcification at the level of the triston. With the current problem patient was diagnosed with a stroke he'll be admitted to the hospital be seen urology, might require to go for an MRI of the brain and the rest of the testing including echo carotid and full workup with lab and coagulopathy. 09/03: Carotid duplex did not show any hemodynamically significant stenosis. Patient has been seen by neurology. Echocardiogram reveals EF of 55-60% with trace tricuspid regurgitation echo-free space may represent effusion or pericardial fat pad, borderline concentric left ventricular hypertrophy. MRI of the brain reveals area of acute ischemia in the triston slight ventral aspect and slight right of midline. Presence of calcification on CAT scan with very more prominent on CAT scan and other MRI sequence versus diffusion raises concern for underlying vascular malformation such as cavernous hemangioma or cryptogenic AVM or low-grade neoplasm. No significant surrounding edema is noted. Postsurgical changes from bilateral frontal craniotomy with encephalomalacia involving bilateral inferior frontal lobes redemonstrated. EEG are pending. Patient denies any new concerns. He will be transferred to [facility] today. Patient's blood sugars have been elevated for which she has been started on Januvia and Humalog scale. 09/04: Patient will be started on Plavix and 2 baby aspirins. Patient states his symptoms are improved with no new symptoms. Patient will be discharged home today in stable condition. Dr. Chicas will make arrangements for outpatient neurosurgical evaluation of the vascular malformation found on MRI. 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 Yoko Loco nurse practitioner acting as scribe for signing physician. Cc: Dr. Herb Negron Patient Condition at Discharge: Good Plan - Discharge Summary New Discharge Prescriptions: Aspirin 162 mg PO DAILY #60 chewable Atorvastatin Calcium [Lipitor] 20 mg PO HS #30 tab Clopidogrel Bisulfate [Plavix] 75 mg PO DAILY #30 tab Famotidine [Pepcid] 20 mg PO DAILY #30 tab metFORMIN HCL 1,000 mg PO BID #60 tab Discharge Medication List Krill Oil 500 mg PO DAILY 09/02/16 [History] Multivitamins, Thera [Multivitamin] 1 tab PO DAILY 09/02/16 [History] Aspirin 162 mg PO DAILY #60 chewable 09/04/16 [Rx] Atorvastatin Calcium [Lipitor] 20 mg PO HS #30 tab 09/04/16 [Rx] Clopidogrel Bisulfate [Plavix] 75 mg PO DAILY #30 tab 09/04/16 [Rx] Famotidine [Pepcid] 20 mg PO DAILY #30 tab 09/04/16 [Rx] metFORMIN HCL 1,000 mg PO BID #60 tab 09/04/16 [Rx] Follow up Appointment(s)/Referral(s): Herb Negron MD [Primary Care Provider] - 09/12/16 3:15 pm Klaudia Chicas MD [STAFF PHYSICIAN] - 1 Week Patient Instructions/Handouts: Famotidine (By mouth), Aspirin (By mouth), Metformin (By mouth), Atorvastatin (By mouth), Clopidogrel (By mouth) Activity/Diet/Wound Care/Special Instructions: [facility]-[phone] Discharge Disposition: HOME WITH HOME HEALTH SERVICES
[2016-09-04 14:27] VITALS: BMI 30.6
[2016-09-04 15:18] VITALS: BP 118/72; PULSE 71; TEMP 98.3
--- NOTE | 2016-09-04 16:10 | P.PN ---
Subjective This patient is a 56-year-old male who was seen in neurology consultation yesterday for evaluation of left-sided weakness. Patient developed sudden weakness of his left arm which he initially to be due to possible pinched nerve. He was subsequent admitted to the hospital yesterday and underwent an MRI of the brain today. MRI of the brain reveals evidence of an acute right pontine infarct. There is also some calcification seen in the area of the brainstem. This raises question of vascular malformation versus low-grade neoplasm. This will need further evaluation by neurosurgery in the outpatient setting. The patient underwent carotid Doppler ultrasound which came back negative for any evidence of carotid stenosis. MRI did reveal evidence of old craniotomy areas involving the bifrontal area of the brain for which she underwent brain surgery over 30 years ago for meningioma resection. No evidence of any enhancing lesions were noted on this MRI of the brain done today. Patient continues to do fairly well today. He is noted to have elevated blood sugars. He has been started on Januvia and Humalog to scale. We reviewed all of the results of the MRI today with the patient in detail. Patient may be evaluated for possible inpatient rehab placement as well. If the patient is not a candidate for inpatient rehab and would recommend home PT evaluation and treatment for him. He should continue on 1 aspirin daily for secondary stroke prevention. We will continue close neurological follow-up for the patient. Once again we would recommend the patient to have follow-up in the neurosurgery clinic regarding his MRI results today. This can be done in the outpatient setting with neurosurgery. Case was discussed at length with the patient and his mother at bedside. All of their questions were answered today detail. Patient will be discharged to home later today. Patient advised to follow-up in the outpatient neurology clinic at which time we will arrange for neurosurgical consultation and further recommendations. Patient is to continue on Plavix and aspirin for secondary stroke prevention. His overall prognosis at this time remains guarded. Case was discussed at length with Dr. Dobbs yesterday and he is aware of our recommendations. We will continue close neurological follow-up for the patient during this admission. Objective - Vital Signs Vital signs: Vital Signs Temp 98.3 F 09/04/16 15:16 Pulse 71 09/04/16 15:16 Resp 18 09/04/16 15:16 BP 118/72 09/04/16 15:16 Pulse Ox 93 L 09/04/16 15:16 Intake & Output 09/03/16 09/04/16 09/04/16 18:59 06:59 18:59 Intake Total 720 120 Output Total 350 Balance 370 120 Weight 96.8 kg 96.8 kg Intake: Oral 720 120 Output: Urine 350 Other: Voiding Method Toilet Toilet Toilet # Voids 1 - Exam Physical examination: PHYSICAL EXAMINATION: Patient is resting comfortably in bed. VITAL SIGNS: Blood pressure is [118/72]. Heart rate is [71]. Respiration is [18] . Temperature is [98.3]. HEENT: Head is atraumatic, neck is supple, there were no carotid bruits. CHEST: Lungs are clear to auscultation and percussion. CARDIAC: S1, S2 normal rate and rhythm. There is no murmur. ABDOMEN: Soft and nontender. Bowel sounds are present. EXTREMITIES: There is no pedal edema. Peripheral pulses are present. Neurological examination: Patient's neurological examination is unchanged from yesterday. - Labs CBC & Chem 7: 09/02/16 09:00 09/02/16 09:00 Labs: Abnormal Lab Results - Last 24 Hours (Table) 09/03/16 09/03/16 09/04/16 Range/Units 17:09 20:37 07:07 POC Glucose (mg/dL) 271 H 168 H 180 H (75-99) mg/dL 09/04/16 Range/Units 11:23 POC Glucose (mg/dL) 203 H (75-99) mg/dL Assessment and Plan (1) Acute right arterial ischemic stroke, MCA (middle cerebral artery) Status: Acute Code(s): I63.511 - CEREB INFRC D/T UNSP OCCLS OR STENOS OF RIGHT MID CEREB ART (2) History of resection of meningioma Status: Acute Code(s): Z98.890 - OTHER SPECIFIED POSTPROCEDURAL STATES (3) Extraocular muscle weakness of right eye Status: Acute Code(s): H05.821 - MYOPATHY OF EXTRAOCULAR MUSCLES, RIGHT ORBIT Plan: This patient is a 56-year-old male who was admitted to hospital with acute left- sided weakness that started last Friday at home. The patient thinking this was a pinched nerve did not seek medical attention at that time. He was admitted yesterday for further evaluation. He underwent MRI of the brain today which does reveal evidence of a positive brainstem stroke. The area of infarction involves the right triston. This would explain his acute left-sided weakness. He should continue with physical therapy and possibly even be considered for inpatient rehab if a good candidate. We would recommend he continue on one full aspirin 325 mg daily for secondary stroke prevention. MRI of the brain failed to reveal any evidence of recurrent meningioma. There was a differential diagnosis for the brainstem area of calcification which will require neurosurgical evaluation in the outpatient clinic. We did discuss this findings in detail with the patient and his mother at bedside. They can arrange for further evaluation of his MRI films with neurosurgery to see if there is any further recommendations. At this point would continue our current stroke evaluation and treatment. Patient has been cleared for discharge to home today. He is to continue on Plavix and aspirin for secondary stroke prevention. We will arrange for neurosurgical consultation for further evaluation of his recent MRI films of the brain. Patient is to schedule for follow-up in the outpatient neurology clinic in 3-4 weeks. We will continue to follow his progress closely during this admission.
== END 2016-09-04 15:40 | disposition home health service (06) | DRG 65 ==
LOC: EC 08:39 → 6SEL 10:14 → 5MS5E 09-03 15:17
PROVIDERS: ADMIT Internal Medicine Geriatric Medicine; ATTEND Internal Medicine Geriatric Medicine
DX: I63.39 Cerebral infarction due to thrombosis of other cerebral artery (principal); G81.94 Hemiplegia, unspecified affecting left nondominant side; E11.65 Type 2 diabetes mellitus with hyperglycemia; K21.9 Gastro-esophageal reflux disease without esophagitis; E66.9 Obesity, unspecified; N40.0 Benign prostatic hyperplasia without lower urinary tract symptoms; R47.81 Slurred speech; R00.1 Bradycardia, unspecified; M62.81 Muscle weakness (generalized); Z86.011 Personal history of benign neoplasm of the brain; Z79.82 Long term (current) use of aspirin; Z88.1 Allergy status to other antibiotic agents; Z88.2 Allergy status to sulfonamides; Z68.30 Body mass index [BMI] 30.0-30.9, adult; Z82.49 Family history of ischemic heart disease and other diseases of the circulatory system
CPT/HCPCS: 36415; 70450; 70553; 71020; 80053; 80061; 82550; 82553; 83036; 84484; 85025; 85610; 85730; 93005; 93306; 93880; 95819; 96360; 99285

== ENCOUNTER → 2017-03-15 | Outpatient (CLI) | payer OTHER ==
--- NOTE | 2017-03-16 09:00 | MR ---
EXAMINATION TYPE: MR brain wo/w con DATE OF EXAM: 03/15/2017 COMPARISON: NONE HISTORY: Right hemispheric stroke and meningioma resection F/U TECHNIQUE: Multiplanar, multisequence images of the brain and brainstem is performed without and with IV contras t, utilizing 9 mL intravenous Gadavist . FINDINGS: Diffusion weighted images demonstrate no evidence of a recent infarct or other diffusion ab normality. No abnormal signal is noted in the region of the previous acute infarct in the right triston . In the region of dystrophic calcification seen on the CT of 09/02/2016 that raise suspicion for heman gioma or AVM as well as low-grade neoplasm does not demonstrate enhancement on today's examination an d is seen as a region of T1 hypointensity, nonenlarged from the prior exam. Best seen on the sagittal images there is enhancing area just anterior to the sella turcica involving the anterior cranial fossa with osseous involvement extending anterior to the sphenoid sinus such as on series 601 image 69 measuring 2.2 cm in anterior posterior dimension by 1.5 cm in craniocaudal di mension. This appears to be just deep to the dural surface which appears slightly thickened on series 6 on image 61. Right para midline this measures 1.5 x 1.6 cm and is smaller on left para midline ent ering 1.3 x 1.2 cm. There does not appear to be extension surrounding the internal carotid arteries o r anterior cerebral arteries. Inferior to this mucosal thickening is seen within the ethmoid sinuses. Maxillary sinuses and mastoid air cells are well aerated. Incidental note is made of a partially empty sella turcica. Incidental note is also made of dilated V irchow-Jt space inferior to the left basal ganglia. The degree of scoliosis and encephalomalacia i n the bilateral frontal lobes is unchanged from the prior exam with involvement most pronounced infer iorly. Bifrontal craniotomy has been performed with fluid or mucosal thickening of the frontal sinuse s. No extra-axial fluid collection is present. The ventricular system and cisternal spaces are normal in size and appearance. The dural venous sinuses appear patent. The visualized sinuses are clear an d the globes are intact. IMPRESSION: 1. Enhancing region in the frontal bone along the area of previously resected meningioma. This could relate to residual meningioma/osseous invasion or granulation tissue is seen just deep to the frontal dura with minimal dural thickening. 2. Previously seen area of acute ischemia within the right para midline ventral triston has resolved and no abnormal enhancement is seen in this region in the previously suggested vascular malformation or low-grade neoplasm. These may represent dystrophic calcifications of prior injury. Low-grade neoplasm is considered unlikely although surveillance is again recommended. 3. Bifrontal encephalomalacia and craniotomy defects from previous meningioma resection.
--- NOTE | 2017-03-16 09:08 | MR ---
EXAMINATION TYPE: MR angio head wo con DATE OF EXAM: 03/15/2017 COMPARISON: MR brain of the same day. HISTORY: Right hemispheric stroke and meningioma resection F/U TECHNIQUE: Multiplanar, multisequence images of the brain and brainstem is performed without contrast using time -of-flight imaging. 3-D reformats were obtained at a separate workstation. FINDINGS: The carotid arteries are symmetric with no evidence of hemodynamically significant stenosis or occlus ion. Specifically in the region of the supraclinoid and cavernous portions of the carotid arteries ne ar the region of the previously resected frontal meningioma and area of abnormal osseous enhancement on the MR brain of the same day there is no evidence of narrowing or significant stenosis. Ophthalmic arteries are also unaffected although the left ophthalmic artery courses just lateral to the area of abnormal enhancement seen on the MR brain of the same day. Left posterior to indicating artery is di minutive although the ute of [place] appears intact. Anterior communicating artery is also diminuti ve. No focal aneurysm is seen. Vertebral arteries are codominant. No evidence of arterial dissection. The previously seen right paranasal sinus disease appears slightly T1 hyperintense. IMPRESSION: 1. No evidence of hemodynamically significant stenosis within either carotid system or the intracrani al vasculature. No evidence of dissection. 2. Abnormal area of enhancement on the MR brain of the same day abuts but does not surround the supra clinoid portion of the left internal carotid artery and ophthalmic artery. 3. T1 hyperintensity of the right frontal paranasal sinus disease. This could relate to blood product s from prior surgery or high-density proteinaceous mucosal thickening, alternatively fungal paranasal sinus disease is possible.
== END ==
LOC: RADMRIMAIN 13:18
PROVIDERS: ATTEND Psychiatry & Neurology Neurology
DX: G93.89 Other specified disorders of brain (principal); R93.8 Abnormal findings on diagnostic imaging of other specified body structures
CPT/HCPCS: 70544; 70553; A9581

== ENCOUNTER 2020-09-24 10:42 | Emergency (ER) | payer OTHER ==
[2020-09-24 10:54] VITALS: RESP 18
[2020-09-24] MEDS ORDERED: AMPICILLIN-SULBACTAM 3 GM in SODIUM CHLORIDE 0.9% 100 ML IVPB STA (11:18)
[2020-09-24] MEDS ORDERED: HYDROmorphone 0.5 MG/0.5 ML SYRINGE IVP STA (11:19)
[2020-09-24] MEDS ORDERED: ONDANSETRON 4 MG/2 ML VIAL IVP STA (11:19)
[2020-09-24] MEDS ORDERED: SODIUM CHLORIDE 0.9% 1,000 ML IV ONE (11:19)
--- NOTE | 2020-09-24 11:25 | ED ---
ENT HPI - General Chief complaint: Dental/Oral Stated complaint: TOOTH PAIN Time Seen by Provider: 09/24/20 10:58 Source: patient, RN notes reviewed Mode of arrival: ambulatory Limitations: no limitations - History of Present Illness Initial comments: This a 60-year-old male presents emergency Department chief complaint of right- sided facial swelling, swelling towards his throat. Patient states is having severe pain. He states he started with dental pain days ago states that he's woke up with increased swelling. Patient reports strict fevers and chills. Patient denies any headache or neck stiffness states that it is very painful on the right side and states he feels swelling in the front of his throat. Patient denies any chest pain shortness breath - Related Data Home Medications Medication Instructions Recorded Confirmed Krill Oil 500 mg PO DAILY 09/02/16 10/10/16 Multivitamins, Thera [Multivitamin 1 tab PO DAILY 09/02/16 10/10/16 (formulary)] Previous Rx's Medication Instructions Recorded Aspirin 162 mg PO DAILY #60 chewable 09/04/16 Atorvastatin Calcium [Lipitor] 20 mg PO HS #30 tab 09/04/16 Clopidogrel Bisulfate [Plavix] 75 mg PO DAILY #30 tab 09/04/16 Famotidine [Pepcid] 20 mg PO DAILY #30 tab 09/04/16 metFORMIN HCL 1,000 mg PO BID #60 tab 09/04/16 Amoxicillin/Potassium Clav 1 tab PO Q12HR #20 tab 09/24/20 [Augmentin 875-125 Tablet] Allergies Allergy/AdvReac Type Severity Reaction Status Date / Time cephalexin monohydrate Allergy Severe Rash/Hives Verified 09/24/20 10:51 [From Keflex] Sulfa (Sulfonamide Allergy Severe Rash/Hives Verified 09/24/20 10:51 Antibiotics) Review of Systems ROS Statement: Those systems with pertinent positive or pertinent negative responses have been documented in the HPI. ROS Other: All systems not noted in ROS Statement are negative. Past Medical History Past Medical History: CVA/TIA, Diabetes Mellitus, GERD/Reflux, Hyperlipidemia, Hypertension Additional Past Medical History / Comment(s): 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 History of Any Multi-Drug Resistant Organisms: None Reported Past Surgical History: Unable to Obtain Additional Past Surgical History / Comment(s): CRANIOTOMY TIMES 2, sinus surgery for tumor removal, colonoscopies, bilateral eye surgery-radiation caused scarring and muscles had to be stretched. Past Anesthesia/Blood Transfusion Reactions: No Reported Reaction Past Psychological History: No Psychological Hx Reported Smoking Status: Never smoker Past Alcohol Use History: None Reported Past Drug Use History: None Reported - Past Family History Mother Family Medical History: Eye Disorder Additional Family Medical History / Comment(s): Glaucoma. Mother is 81 yrs old. Father Family Medical History: Myocardial Infarction (ID) Additional Family Medical History / Comment(s): Father had heart disease and of a ID at the age of 82yrs. General Exam Limitations: no limitations General appearance: alert, in no apparent distress Head exam: Present: atraumatic, normocephalic, normal inspection Eye exam: Present: normal appearance, PERRL, EOMI. Absent: scleral icterus, conjunctival injection, periorbital swelling ENT exam: Present: mucous membranes moist, TM's normal bilaterally, normal external ear exam, other (Significant right sided submandibular swelling, submental swelling). Absent: normal oropharynx (No obvious abscess) Neck exam: Present: tenderness, full ROM. Absent: normal inspection, meningismus, lymphadenopathy Respiratory exam: Present: normal lung sounds bilaterally. Absent: respiratory distress, wheezes, rales, rhonchi, stridor Cardiovascular Exam: Present: normal rhythm, tachycardia, normal heart sounds. Absent: systolic murmur, diastolic murmur, rubs, gallop, clicks GI/Abdominal exam: Present: soft, normal bowel sounds. Absent: distended, tenderness, guarding, rebound, rigid Course Vital Signs 09/24/20 10:51 Temperature 98.7 F Pulse Rate 115 H Respiratory 18 Rate Blood Pressure 139/90 O2 Sat by Pulse 97 Oximetry Medical Decision Making - Medical Decision Making 60-year-old male presents emergency room for right-sided jaw swelling. Patient CT does show evidence of inflammatory processes no drainable abscess. This is surrounding the right mandibular region. Patient was given a dose of Unasyn. Patient discharged on Augmentin he'll follow-up with the dentist tomorrow he is advised to have recheck in 24 hours return for any worsening change in symptoms. - Lab Data Result diagrams: 09/24/20 11:47 09/24/20 11:47 Lab Results 09/24/20 09/24/20 09/24/20 Range/Units 11:47 11:47 11:47 WBC 16.6 H (3.8-10.6) k/uL RBC 5.64 (4.30-5.90) m/uL Hgb 16.8 (13.0-17.5) gm/dL Hct 48.1 (39.0-53.0) % MCV 85.3 (80.0-100.0) fL MCH 29.7 (25.0-35.0) pg MCHC 34.9 (31.0-37.0) g/dL RDW 13.2 (11.5-15.5) % Plt Count 209 (150-450) k/uL MPV 7.1 Neutrophils % 80 % Lymphocytes % 12 % Monocytes % 5 % Eosinophils % 1 % Basophils % 0 % Neutrophils # 13.3 H (1.3-7.7) k/uL Lymphocytes # 2.0 (1.0-4.8) k/uL Monocytes # 0.9 (0-1.0) k/uL Eosinophils # 0.2 (0-0.7) k/uL Basophils # 0.1 (0-0.2) k/uL Sodium 134 L (137-145) mmol/L Potassium 4.9 (3.5-5.1) mmol/L Chloride 94 L (98-107) mmol/L Carbon Dioxide 25 (22-30) mmol/L Anion Gap 15 mmol/L BUN 12 (9-20) mg/dL Creatinine 0.91 (0.66-1.25) mg/dL Est GFR (CKD-EPI)AfAm >90 (>60 ml/min/1.73 sqM) Est GFR (CKD-EPI)NonAf >90 (>60 ml/min/1.73 sqM) Glucose 249 H (74-99) mg/dL Plasma Lactic Acid Ananda 2.8 H* (0.7-2.0) mmol/L Calcium 9.7 (8.4-10.2) mg/dL Total Bilirubin 1.0 (0.2-1.3) mg/dL AST 32 (17-59) U/L ALT 27 (4-49) U/L Alkaline Phosphatase 87 (38-126) U/L Total Protein 8.5 H (6.3-8.2) g/dL Albumin 4.9 (3.5-5.0) g/dL Disposition Clinical Impression: Dental infection Disposition: ADMITTED IP TO THIS HOSP Condition: Stable Instructions (If sedation given, give patient instructions): Dental Abscess (ED) Additional Instructions: Please return to the Emergency Department if symptoms worsen or any other concerns. Prescriptions: Amoxicillin/Potassium Clav [Augmentin 875-125 Tablet] 1 tab PO Q12HR #20 tab Is patient prescribed a controlled substance at d/c from ED?: No Referrals: Clint Han MD [Primary Care Provider] - 1-2 days Time of Disposition: 13:31
[2020-09-24 11:56] LABS: Basophils # (A) 0.1 k/uL (0-0.2); Basophils % (A) 0 %; Eosinophils # (A) 0.2 k/uL (0-0.7); Eosinophils % (A) 1 %; HCT 48.1 % (39.0-53.0); HGB 16.8 gm/dL (13.0-17.5); Lymphocytes % (A) 12 %; MCH 29.7 pg (25.0-35.0); MCHC 34.9 g/dL (31.0-37.0); MCV 85.3 fL (80.0-100.0); Mean Platelet Volume 7.1; Monocytes # (A) 0.9 k/uL (0-1.0); Monocytes % (A) 5 %; Neutrophils # (A) 13.3 k/uL (1.3-7.7); Neutrophils % (A) 80 %; Platelet Count 209 k/uL (150-450); RBC 5.64 m/uL (4.30-5.90); RDW 13.2 % (11.5-15.5); WBC 16.6 k/uL (3.8-10.6)
[2020-09-24 12:05] LABS: ALT 27 U/L (4-49); AST 32 U/L (17-59); African American GFR (CKD) >90 (>60 ml/min/1.73 sqM); Albumin 4.9 g/dL (3.5-5.0); Alkaline Phosphatase 87 U/L (38-126); Anion Gap 15 mmol/L; Blood Urea Nitrogen 12 mg/dL (9-20); Calcium 9.7 mg/dL (8.4-10.2); Carbon Dioxide 25 mmol/L (22-30); Chloride 94 mmol/L (98-107); Glucose 249 mg/dL (74-99); Non-African American GFR(CKD) >90 (>60 ml/min/1.73 sqM); Potassium 4.9 mmol/L (3.5-5.1); Sodium 134 mmol/L (137-145); Total Protein 8.5 g/dL (6.3-8.2)
--- NOTE | 2020-09-24 13:06 | CT ---
EXAMINATION TYPE: CT soft tissue neck w con DATE OF EXAM: 09/24/2020 12:48 PM COMPARISON: None HISTORY: Right sided facial swelling and pain CT DLP: 323.2 mGycm Automated exposure control for dose reduction was used. CONTRAST: CT scan of the neck is performed following with IV Contrast, patient injected with 100 mL of Isovue 3 00. Axial images are obtained, coronal and sagittal reformatted images are reviewed. FINDINGS: There is diffuse ill-defined density in the soft tissues of the right neck adjacent to the right jefe ible with thickening of the platysma muscle on the right. There is no discrete abscess or enlarged ly mph nodes. The thyroid gland is normal and symmetric without evidence of mass. The larynx including the thyroid, arytenoid and cricoid cartilages are intact. There is no thickening of the vocal cords. The tongue base is unremarkable. The epiglottis, aryepiglottic folds piriform sinuses and vallecula a re normal in appearance. The pharynx and parapharyngeal soft tissues are normal. The parotid and submandibular glands are norm al in size. The great vessels the neck are normal. There is no pelvic adenopathy The osseous structures are intact. There is no evidence of cortical disruption of the mandible. IMPRESSION: Inflammatory changes of the soft tissues of the right neck surrounding the right mandible involving t he right platysma muscle. There is no discrete abscess or bone destruction. There is no adenopathy.
[2020-09-24] MEDS ORDERED: HYDROmorphone 1 MG/ML 1 ML SYRINGE IVP STA (13:29)
[2020-09-24] MEDS ORDERED: ACET/COD 300 MG/30 MG STARTER PACK 6 TAB BTL PO STA (13:31)
[2020-09-24 14:29] VITALS: BP 129/85; PULSE 90; TEMP 98
== END 2020-09-24 14:30 | disposition other institution (70) ==
LOC: EC 10:42
DX: K04.7 Periapical abscess without sinus (principal); E11.9 Type 2 diabetes mellitus without complications; E78.5 Hyperlipidemia, unspecified; I10 Essential (primary) hypertension; K21.9 Gastro-esophageal reflux disease without esophagitis; Z79.82 Long term (current) use of aspirin; Z79.84 Long term (current) use of oral hypoglycemic drugs; Z86.73 Personal history of transient ischemic attack (TIA), and cerebral infarction without residual deficits
CPT/HCPCS: 36415; 70491; 80053; 83605; 85025; 87040; 96361; 96365; 96375; 96376; 99283

== ENCOUNTER 2022-07-30 07:02 | Day surgery (SDC) | payer OTHER ==
[2022-07-26 09:50] VITALS: BMI 29.2
[2022-07-30] MEDS ORDERED: LIDOCAINE 1% (10MG/ML) FOR IV START INTRADERMA PRN (07:10)
[2022-07-30] MEDS ORDERED: ONDANSETRON 4 MG/2 ML VIAL IVP PRN (07:10)
[2022-07-30] MEDS ORDERED: LACTATED RINGERS 1,000 ML IV SCH (07:10)
[2022-07-30 07:38] VITALS: RESP 16; TEMP 97
[2022-07-30 07:43] LABS: Glucose,Whole Blood 139 mg/dL (70-110)
[2022-07-30] MEDS ORDERED: PROPOFOL 10 MG/ML 20 ML VIAL IV ONE (08:36)
[2022-07-30] MEDS ORDERED: LIDOCAINE 2% INJ 20 MG/ML (2 ML VIAL) ONE (08:36)
--- NOTE | 2022-07-30 08:51 | P.PCN ---
Date of Procedure: 07/30/22 Procedure(s) Performed: BRIEF HISTORY: Patient is a 62-year-old pleasant male scheduled for an elective colonoscopy as a part of screening for colon cancer. His last colonoscopy was 15 years ago. PROCEDURE PERFORMED: Colonoscopy with biopsy. PREOPERATIVE DIAGNOSIS: Screening for colon cancer. IV sedation per Anesthesia. PROCEDURE: After informed consent was obtained, the patient, was brought into the endoscopy unit. IV sedation was administered by Anesthesia under continuous monitoring. Digital rectal examination was normal. Initially the Olympus CF-160 flexible video colonoscope was then inserted in the rectum, gradually advanced into the cecum without any difficulty. Careful examination was performed as the scope was gradually being withdrawn. Ileocecal valve and the appendiceal orifice were visualized and appeared normal. Prep was excellent. Mucosa of the cecum, ascending colon, appeared normal. In the transverse colon there was a 3 mm sessile polyp that was removed by cold biopsy. Rest of the transverse colon, descending colon, sigmoid colon, and rectum appeared normal. Retroflexion was performed in the rectum and no lesions were seen. The patient tolerated the procedure well. IMPRESSION: 3-4 mm transverse colon polyp status post cold biopsy Rest of the colon appeared normal RECOMMENDATIONS: Findings of this examination were discussed with the patient as well as a family.. He was advised to follow with the biopsy results. If the biopsy results adenoma he can have a repeat colonoscopy in 5 years.
[2022-07-30 09:16] VITALS: BP 127/69; PULSE 61
== END 2022-07-30 09:40 | disposition home or self-care (01) ==
LOC: ORWHC2ENDO 07:02
PROVIDERS: ATTEND Internal Medicine Gastroenterology
DX: Z12.11 Encounter for screening for malignant neoplasm of colon (principal); K63.5 Polyp of colon; E11.9 Type 2 diabetes mellitus without complications; Z79.84 Long term (current) use of oral hypoglycemic drugs; I10 Essential (primary) hypertension; E78.5 Hyperlipidemia, unspecified; H91.90 Unspecified hearing loss, unspecified ear; Z79.899 Other long term (current) drug therapy; Z79.02 Long term (current) use of antithrombotics/antiplatelets; Z79.82 Long term (current) use of aspirin; K21.9 Gastro-esophageal reflux disease without esophagitis; Z86.73 Personal history of transient ischemic attack (TIA), and cerebral infarction without residual deficits; Z98.890 Other specified postprocedural states
CPT/HCPCS: 45380; 88305; J2704; J2001

== ENCOUNTER 2023-10-18 12:44 | Emergency (ER) | payer OTHER ==
--- NOTE | 2023-10-18 13:21 | ED ---
Skin/Abscess/FB HPI - General Chief complaint: Skin/Abscess/Foreign Body Stated complaint: Irreg. spot on R leg Time Seen by Provider: 10/18/23 12:55 Source: patient, RN notes reviewed Mode of arrival: ambulatory Limitations: no limitations - History of Present Illness Initial comments: This is a 63-year-old male who presents to the emergency department for a lesion to his left leg. States that he noticed a red bump to his left leg that appeared 4 days ago. This has since seemed to be enlarging. States that it appears almost like a skin tag. It is uncomfortable but not horribly painful. Denies having anything like this before. - Related Data Home Medications Medication Instructions Recorded Confirmed Krill Oil 500 mg PO DAILY 09/02/16 07/30/22 Multivitamins, Thera [Multivitamin 1 tab PO DAILY 09/02/16 07/30/22 (formulary)] Aspirin 81 mg PO DAILY 07/26/22 07/30/22 Atorvastatin Calcium 10 mg PO DAILY 07/26/22 07/30/22 Previous Rx's Medication Instructions Recorded Clopidogrel Bisulfate [Plavix] 75 mg PO DAILY #30 tab 09/04/16 metFORMIN HCL [Glucophage] 1,000 mg PO BID #60 tab 09/04/16 Doxycycline [Vibramycin] 100 mg PO BID 10 Days #20 capsule 10/18/23 Allergies Allergy/AdvReac Type Severity Reaction Status Date / Time cephalexin monohydrate Allergy Severe Rash/Hives Verified 10/18/23 12:48 [From Keflex] Sulfa (Sulfonamide Allergy Severe Rash/Hives Verified 10/18/23 12:48 Antibiotics) Review of Systems ROS Statement: Those systems with pertinent positive or pertinent negative responses have been documented in the HPI. ROS Other: All systems not noted in ROS Statement are negative. Past Medical History Past Medical History: CVA/TIA, Diabetes Mellitus, Deep Vein Thrombosis (DVT), GE RD/Reflux, Hearing Disorder / Deafness, Hyperlipidemia, Hypertension Additional Past Medical History / Comment(s): "Micro stroke" 2 yrs ago, lost 10- 15 % of strength in left arm. 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 Hx DVT in 1987 in right knee after prolonged bedrest. Hx DVT in left leg in 1998 after 2nd tumor removed. Has had a total of 3 DVTs in left leg and a total of 2 DVT's in right leg. No medication required for BP. Bilateral hearing aid use. History of Any Multi-Drug Resistant Organisms: None Reported Past Surgical History: Unable to Obtain Additional Past Surgical History / Comment(s): Criniotomy X2, sinus surgery for tumor removal, colonoscopies, bilateral eye surgery-radiation caused scarring and muscles had to be stretched, right eye surgery. Past Anesthesia/Blood Transfusion Reactions: No Reported Reaction Past Psychological History: No Psychological Hx Reported Smoking Status: Never smoker Past Alcohol Use History: Rare Past Drug Use History: None Reported - Past Family History Mother Family Medical History: Eye Disorder Additional Family Medical History / Comment(s): Glaucoma. Father Family Medical History: Deep Vein Thrombosis (DVT), Myocardial Infarction ([place]) Additional Family Medical History / Comment(s): Father had heart disease and of a VA at the age of 82yrs. General Exam Limitations: no limitations General appearance: alert, in no apparent distress Head exam: Present: atraumatic, normocephalic, normal inspection Respiratory exam: Present: normal lung sounds bilaterally. Absent: respiratory distress, wheezes, rales, rhonchi, stridor Cardiovascular Exam: Present: regular rate, normal rhythm, normal heart sounds. Absent: systolic murmur, diastolic murmur, rubs, gallop, clicks Extremities exam: Present: other (There is a living tick embedded in the patient's left thigh with surrounding erythema. Erythema is dark red on the border with central clearing) Neurological exam: Present: alert, oriented X3, CN II-XII intact Psychiatric exam: Present: normal affect, normal mood Course Vital Signs 10/18/23 10/18/23 12:46 13:37 Temperature 98.4 F 98.7 F Pulse Rate 63 61 Respiratory 20 18 Rate Blood Pressure 144/80 126/75 O2 Sat by Pulse 99 96 Oximetry Procedures - Forgein Body Removal Soft Tissue Consent Obtained: verbal consent Site: lower extremity Foreign Body Suspected: Other (Tick) Foreign Body Removed: yes Foreign Body Removal Technique: Forceps Medical Decision Making - Medical Decision Making This is a 63-year-old male who presents to the emergency department for a lesion to his left leg. Was pt. sent in by a medical professional or institution? @ -No Did you speak to anyone other than the patient for history? @ -No Did you review nursing and triage notes? @ -Yes, and I agree, it is accurate with regards to the patient's symptoms. Were old charts reviewed? @ -No Differential Diagnosis? @ -Differential Skin Lesion: Cellulitis, abscess, burn, insect bite, this is not meant to be an all-inclusive list. EKG interpreted by me (3pts min.)? @ -Not obtained X-rays interpreted by me (1pt min.)? @ -Not obtained CT interpreted by me (1pt min.)? @ -Not obtained U/S interpreted by me (1pt. min.)? @ -Not obtained What testing was considered but not performed? (CT, X-rays, U/S, labs)? Why? @ -None What meds were considered but not given? Why? @ -None Did you discuss the management of the patient with other professionals? @ -No Did you reconcile home meds? @ -No Was smoking cessation discussed for >3mins.? @ -No Was critical care preformed (if so, how long)? @ -No Were there social determinants of health that impacted care today? How? (Homelessness, low income, unemployed, alcoholism, drug addiction, transportation, low edu. Level, literacy, decrease access to med. care, retirement, rehab)? @ -No Was there de-escalation of care discussed even if they declined? (Discuss DNR or withdrawal of care, Hospice)? @ -No What co-morbidities impacted this encounter? (DM, HTN, Smoking, COPD, CAD, Cancer, CVA, Hep., AIDS, mental health diagnosis, sleep apnea, morbid obesity)? @ -None Was patient admitted / discharged? @ -Discharged. Physical examination demonstrates a living tick embedded in the patient's left thigh. This is surrounded by an erythematous rash that has a dark red border with central clearing. Forceps were used to remove the tick in its entirety. Given how long the tick has been present with the surrounding rash, patient was started on a course of doxycycline. Advised ibuprofen and Tylenol as needed for pain relief. Patient discharged home in stable condition. Undiagnosed new problem with uncertain prognosis? @ -None Drug Therapy requiring intensive monitoring for toxicity (Heparin, Nitro, Insulin, Cardizem)? @ -None Were any procedures done? @ -Foreign body soft tissue removal Diagnosis/symptom? @ -Tick bite Acute, or Chronic, or Acute on Chronic? @ -Acute Uncomplicated (without systemic symptoms) or Complicated (systemic symptoms)? @ -Uncomplicated Side effects of treatment? @ -None Exacerbation, Progression, or Severe Exacerbation] @ -Not applicable Poses a threat to life or bodily function? @ -No Return precautions reviewed in depth, the patient is instructed to return to the emergency department with any new, worsening, or concerning symptoms. Patient verbalized understanding. This case was discussed in detail with the attending ED physician, Dr. Carvajal. Presentation, findings, and treatment plan discussed in detail as well. Disposition Clinical Impression: Tick bite Disposition: HOME SELF-CARE Instructions (If sedation given, give patient instructions): Tick Bite (ED) Additional Instructions: Return to the emergency department with any new, worsening, or concerning symptoms. Take the doxycycline as prescribed for 10 days. Follow up with your primary care provider in 1-2 days. Prescriptions: Doxycycline [Vibramycin] 100 mg PO BID 10 Days #20 capsule Is patient prescribed a controlled substance at d/c from ED?: No Referrals: Oly Chang [Primary Care Provider] - 1-2 days Time of Disposition: 13:21
[2023-10-18 13:48] VITALS: BP 126/75; PULSE 61; RESP 18; TEMP 98.7
== END 2023-10-18 13:38 | disposition home or self-care (01) ==
LOC: EC 12:44
DX: S30.861A Insect bite (nonvenomous) of abdominal wall, initial encounter (principal); Z88.1 Allergy status to other antibiotic agents; Z88.2 Allergy status to sulfonamides; W57.XXXA Bitten or stung by nonvenomous insect and other nonvenomous arthropods, initial encounter
CPT/HCPCS: 10120; 99282